=== PATIENT | male | born 1960 | race Caucasian/White ===

== ENCOUNTER → 2017-02-03 | Outpatient (CLI) | payer BC ==
[~2017-02-03] MED LIST: ALPR0.5T PO; BACL10TA PO; FENO130C6 PO; OMEP20CA16 PO
--- NOTE | 2017-02-04 07:02 | HKNOTE ---
DATE OF SERVICE: 02/03/2017 HISTORY OF MAIN COMPLAINT: The patient is a 56-year-old male who underwent right total knee replace ment on 05/19/2016. He is totally delighted with the result of the surgery. He continues to have p roblems with 3 other joints, his left ankle and both knees. The right knee is the most troublesome. He has been seen by a foot and ankle specialist in [facility], who told him that he will need surgery to the ankle. His right knee swells, feels unstable, and it locks. Knee instability occurs several times a day. He continues to have a great deal of pain in the knee. The patient gets pain in the left knee on walking, but he has no swelling and no locking. He is totally delighted with the result of his right total hip replacement. PHYSICAL EXAMINATION: GENERAL: The patient comes in with his . VITAL SIGNS: Height 5 feet 3 inches. Weight 233 pounds. Blood pressure 150/85, temperature 98.4. RIGHT KNEE: Extension lacks 5 degrees (painful). Flexion is to 105 degrees (painful). There is 3+ crepitus in the knee and under patella. 2+ effusion. IMAGING: Plain x-rays of the right hip obtained today show all components to be well placed and ali gned. Not the slightest evidence of loosening or any other problem. Imaging of the ____ knee shows some narrowing of the medial joint space and patellofemoral joint. Similar changes are noted in the ____ knee. MRI scan of the left knee obtained on 07/30/[address] Freddie Amin as showing "tricomp artmental osteoarthritis greatest in the medial compartment with moderate joint space narrowing and full-thickness chondromalacic changes along the medial femoral articular surface. Medial meniscus s hows a horizontal signal in the posterior horn without touching the articular surface consistent wit h grade II degenerative changes without meniscal tear." DISCUSSION: The patient is a 56-year-old male with arthritis of the left knee of a moderate degree. There is good joint space remaining throughout the knee. Given his age and the degree of arthriti s, he is certainly not a candidate for knee replacement surgery, although he will be at some time in the next 5 years or so in my opinion. However, he currently has all the symptoms of an internal derangement (torn meniscus) with a negativ e MRI scan for a torn meniscus. MANAGEMENT: The patient is advised that in my professional opinion he needs to have an arthroscopic operation of the knee. This surgery and some of the major possible complications were discussed wi th him and his in a fair amount of detail. Postoperative course was discussed with him. FINAL DIAGNOSES: 1. Arthritis plus internal derangement of the left knee. 2. Moderate degenerative osteoarthritis of the right knee. 3. Status post right hip replacement. 4. Acid reflux. The patient will call to schedule his surgery to be performed in the near future. Dictated By: DALE VAZQUEZ/JILL Conf#: [id number] DID#: [id number]
== END | disposition home or self-care (01) ==
LOC: HKI 10:00
DX: M17.0 Bilateral primary osteoarthritis of knee (principal); M23.92 Unspecified internal derangement of left knee; K21.9 Gastro-esophageal reflux disease without esophagitis; Z96.641 Presence of right artificial hip joint
CPT/HCPCS: G0463